=== PATIENT | female | born 1970 | race Caucasian/White ===

== ENCOUNTER 2017-08-23 01:50 | Emergency (ER) | payer BC ==
[~2017-08-23] VITALS: Ht 157.4 cm; Wt 72.6 kg
[2017-08-23] MEDS ORDERED: CORTISPORIN SUS10 ML OT (03:54)
== END 2017-08-23 05:09 | disposition home or self-care (01) ==
LOC: ED 01:50
DX: H61.21 Impacted cerumen, right ear (principal); F17.200 Nicotine dependence, unspecified, uncomplicated

== ENCOUNTER 2017-10-10 11:22 | Inpatient (IN) | payer BC ==
[~2017-10-10] VITALS: Ht 165.1 cm; Wt 72.6 kg
--- NOTE | ~2017-10-10 | ST ---
[place], [place] EXERCISE STRESS TEST REPORT NAME: RODOLFO PADILLA [facility] CLINICT #: [id number] UNIT #: [id number] ROOM: 404 DOCTOR: RALF HORTA MD BIRTHDATE: [birth year] DOS: 10/11/2017 REFERRING PHYSICIAN: Dr. Christian Romero. INDICATION: Chest pain. The patient underwent standard Guillaume protocol stress EKG. The patient's baseline EKG shows sinus bradycardia with heart rate 57 beats per minute, blood pressure 110/70. The patient exercised for 6 minutes and 15 seconds to a maximum heart rate of 156, which represents 91% of maximum predicted. The patient's peak heart rate was 196/100. The patient had no chest pain, no ischemic changes on the EKG and no arrhythmias noted. Hawkins treadmill score is 6.25. SUMMARY OF FINDINGS: 1. Negative exercise treadmill stress test. 2. The patient had no chest pain or arrhythmias. 3. Hawkins Treadmill score of 6.25 portending a low risk prognosis. 4. Please see separate report for perfusion scan results. RALF HORTA MD CM:STRESS:EXERCISE STRESS TEST REPORT [id number] RALF HORTA MD
[~2017-10-10 11:22] MED LIST: CORTISPORIN SUS10 ML OT
[2017-10-10 11:36] VITALS: BP 149/89
[2017-10-10 11:51] LABS: BASO # 0.1 10*3/uL (0.0-0.1); BASO % 0.7 % (0.0-1.0); EOS # 0.2 10*3/uL (0.0-0.4); EOS % 2.5 % (1.0-4.0); HEMOGLOBIN 12.2 g/dl (12.0-16.0); LYMPH % 35.9 % (27.0-41.0); MEAN CORPUSCULAR HGB 31.5 pg (27.0-31.0); MEAN CORPUSCULAR HGB CONC 33.9 g/dl (33.0-37.0); MONO # 0.6 10*3/uL (0.1-1.0); MONO % 6.7 % (3.0-9.0); NEUT # 4.5 10*3/uL (2.3-7.9); PLATELET COUNT AUTOMATED 314 10*3/uL (130-400); RED BLOOD COUNT 3.87 10*6/uL (4.10-5.10); RED CELL DISTRI WIDTH 13.6 % (0-14.5); WHITE BLOOD COUNT 8.3 10*3/uL (4.8-10.8)
[2017-10-10 12:00] LABS: ACT PARTIAL THROMBO TIME 26.5 SECONDS (20.8-31.5); INTERNATIONAL NORM RATIO 0.9 (2.0-3.5)
[2017-10-10 12:02] VITALS: BP 141/94
[2017-10-10 12:45] LABS: ALBUMIN 3.6 gm/dl (3.1-4.5); ALKALINE PHOSPHATASE 73 U/L (45-117); BUN 13 mg/dl (7-24); CHLORIDE 108 mmol/L (98-107); CREATININE 0.69 mg/dL (0.55-1.02); SGOT/AST 10 IU/L (3-35); SGPT/ALT 14 U/L (12-78); SODIUM 141 mmol/L (136-145); TOTAL PROTEIN 7.4 gm/dL (6.4-8.2)
[2017-10-10 12:46] LABS: TROPONIN I < 0.015 ng/ml (<0.045)
[2017-10-10 13:11] VITALS: BP 126/88
[2017-10-10 14:00] VITALS: BP 145/95; BP 145/98
[2017-10-10 16:00] VITALS: BP 113/68
[2017-10-10 20:00] VITALS: BP 113/79
[2017-10-11] VITALS: BP 110/71
[2017-10-11 06:31] LABS: ALBUMIN 3.2 gm/dl (3.1-4.5); ALKALINE PHOSPHATASE 65 U/L (45-117); BUN 13 mg/dl (7-24); CHLORIDE 110 mmol/L (98-107); CHOLESTEROL 198 mg/dL (<200); CREATININE 0.77 mg/dL (0.55-1.02); FREE T4 0.85 ng/dl (0.76-1.46); HDL CHOLESTEROL 59 mg/dl (40-60); LDL CHOLESTEROL 123 mg/dL (9-159); PHOSPHOROUS 2.9 mg/dL (2.5-4.9); POTASSIUM 4.1 mmol/L (3.5-5.1); SGOT/AST 10 IU/L (3-35); SGPT/ALT 15 U/L (12-78); SODIUM 145 mmol/L (136-145); TOTAL PROTEIN 6.8 gm/dL (6.4-8.2); TRIGLYCERIDES 82 mg/dl (<150); VLDL CHOLESTEROL 16 mg/dL (6-40)
[2017-10-11 06:43] LABS: BASO # 0.1 10*3/uL (0.0-0.1); BASO % 0.7 % (0.0-1.0); EOS # 0.2 10*3/uL (0.0-0.4); EOS % 2.4 % (1.0-4.0); HEMATOCRIT 34.5 % (37.0-47.0); HEMOGLOBIN 11.5 g/dl (12.0-16.0); LYMPH # 2.7 10*3/uL (1.3-4.4); LYMPH % 31.8 % (27.0-41.0); MEAN CELL VOLUME 93.8 fl (81.0-99.0); MEAN CORPUSCULAR HGB 31.3 pg (27.0-31.0); MEAN CORPUSCULAR HGB CONC 33.3 g/dl (33.0-37.0); MEAN PLATELET VOLUME 10.8 fl (9.6-12.3); MONO # 0.6 10*3/uL (0.1-1.0); MONO % 7.1 % (3.0-9.0); NEUT # 4.9 10*3/uL (2.3-7.9); NEUT % 57.8 % (47.0-73.0); PLATELET COUNT AUTOMATED 282 10*3/uL (130-400); RED BLOOD COUNT 3.68 10*6/uL (4.10-5.10); RED CELL DISTRI WIDTH 13.7 % (0-14.5); WHITE BLOOD COUNT 8.5 10*3/uL (4.8-10.8)
[2017-10-11 06:58] LABS: VITAMIN D, 25-HYDROXY 9.4 ng/mL (30-100)
[2017-10-11 08:00] VITALS: BP 110/72
[2017-10-11 13:30] VITALS: BP 141/97
[2017-10-11 16:00] VITALS: BP 113/85
[2017-10-11] MEDS ORDERED: VITAMIN D-32000 UNIT PO (16:46)
== END 2017-10-11 17:14 | disposition home or self-care (01) | DRG 313 ==
LOC: ED 11:22 → 4E 11:51 → EDHOLD 11:51 → 4E 12:43
PROVIDERS: Emergency Medicine; Internal Medicine
PROC: 4A02XM4 Measurement of Cardiac Total Activity, External Approach (ICD-10-PCS; principal; 2017-10-11)
DX: R07.9 Chest pain, unspecified (principal); E83.41 Hypermagnesemia; E87.8 Other disorders of electrolyte and fluid balance, not elsewhere classified; K21.9 Gastro-esophageal reflux disease without esophagitis; F17.200 Nicotine dependence, unspecified, uncomplicated; R03.0 Elevated blood-pressure reading, without diagnosis of hypertension; R06.00 Dyspnea, unspecified; R61 Generalized hyperhidrosis; Z83.3 Family history of diabetes mellitus; Z71.6 Tobacco abuse counseling

== ENCOUNTER 2018-11-19 17:27 | Emergency (ER) | payer BC ==
[~2018-11-19] VITALS: Ht 154.9 cm; Wt 77.1 kg
[~2018-11-19 17:27] MED LIST changes: +VITAMIN D-32000 UNIT PO
== END 2018-11-19 20:00 | disposition home or self-care (01) ==
LOC: ED 17:27
DX: M25.561 Pain in right knee (principal); F17.200 Nicotine dependence, unspecified, uncomplicated; X58.XXXA Exposure to other specified factors, initial encounter; Y93.89 Activity, other specified; Y92.89 Other specified places as the place of occurrence of the external cause; Y99.8 Other external cause status

== ENCOUNTER → 2020-01-30 | Outpatient (CLI) | payer BC ==
[2020-01-30 16:53] LABS: HEMATOCRIT 36.4 % (37.0-47.0); MEAN CELL VOLUME 93.8 fl (81.0-99.0); MEAN CORPUSCULAR HGB 31.2 pg (27.0-31.0); MEAN CORPUSCULAR HGB CONC 33.2 g/dl (33.0-37.0); MEAN PLATELET VOLUME 9.9 fl (9.6-12.3); RED BLOOD COUNT 3.88 10*6/uL (4.10-5.10); RED CELL DISTRI WIDTH 14.2 % (0-14.5); WHITE BLOOD COUNT 10.1 10*3/uL (4.8-10.8)
[2020-01-30 17:07] LABS: ALBUMIN 3.4 gm/dl (3.1-4.5); ALKALINE PHOSPHATASE 82 U/L (45-117); BUN 11 mg/dl (7-24); CHLORIDE 110 mmol/L (98-107); CREATININE 0.89 mg/dL (0.55-1.02); SGOT/AST 8 IU/L (3-35); SGPT/ALT 19 U/L (12-78); SODIUM 141 mmol/L (136-145); TOTAL PROTEIN 7.3 gm/dL (6.4-8.2)
[2020-01-31 08:07] LABS: RHEUMATOID ARTHRITIS FACTOR <10.0 IU/mL (0.0-13.9)
== END | disposition home or self-care (01) ==
LOC: LAB 16:15 → EDSTATUS 16:16
PROVIDERS: Family Medicine
DX: M25.50 Pain in unspecified joint (principal); M79.10 Myalgia, unspecified site

== ENCOUNTER → 2020-03-27 | Outpatient (CLI) | payer BC | END | disposition home or self-care (01) | LOC: RAD 16:03 | DX: R06.02 Shortness of breath (principal); R05 Cough; R06.2 Wheezing ==

== ENCOUNTER → 2020-03-28 | Outpatient (CLI) | payer BC | END | disposition home or self-care (01) | LOC: COVID19 00:58 | DX: R06.02 Shortness of breath (principal); R06.2 Wheezing; Z20.828 Contact with and (suspected) exposure to other viral communicable diseases ==

== ENCOUNTER → 2020-04-29 | Outpatient (CLI) | payer BC | END | disposition home or self-care (01) | LOC: MAMMO 03-11 16:30 | DX: Z12.31 Encounter for screening mammogram for malignant neoplasm of breast (principal) ==

== ENCOUNTER → 2021-06-08 | Outpatient (CLI) | payer OTHER | END | disposition home or self-care (01) | LOC: COVID19 15:05 | PROVIDERS: ATTEND Internal Medicine | DX: Z11.52 Encounter for screening for COVID-19 (principal) ==

== ENCOUNTER 2024-01-05 21:21 | Emergency (ER) | payer OTHER ==
[~2024-01-05] VITALS: Ht 157.4 cm; Wt 72.6 kg
[2024-01-05] MEDS ORDERED: IOHEXOL 300 MG/ML 100 ML VIAL IV ONE (21:40)
[2024-01-05 22:03] LABS: BASO # 0.1 10*3/uL (0.0-0.1); BASO % 0.6 % (0.0-1.0); EOS # 0.2 10*3/uL (0.0-0.4); EOS % 1.7 % (1.0-4.0); HEMATOCRIT 32.4 % (37.0-47.0); LYMPH # 2.9 10*3/uL (1.3-4.4); LYMPH % 28.9 % (27.0-41.0); MEAN CELL VOLUME 90.3 fl (81.0-99.0); MEAN CORPUSCULAR HGB 28.1 pg (27.0-31.0); MEAN CORPUSCULAR HGB CONC 31.2 g/dl (33.0-37.0); MEAN PLATELET VOLUME 9.8 fl (9.6-12.3); MONO # 0.7 10*3/uL (0.1-1.0); MONO % 6.7 % (3.0-9.0); NEUT # 6.1 10*3/uL (2.3-7.9); NEUT % 61.8 % (47.0-73.0); PLATELET COUNT AUTOMATED 350 10*3/uL (130-400); RED BLOOD COUNT 3.59 10*6/uL (4.10-5.10); RED CELL DISTRI WIDTH 16.8 % (0-14.5); WHITE BLOOD COUNT 9.9 10*3/uL (4.8-10.8)
[2024-01-05 22:09] LABS: ALKALINE PHOSPHATASE 74 U/L (46-116); BUN 12 mg/dl (9-23); CHLORIDE 109 mmol/L (98-107); LIPASE 40 U/L (12-53); POTASSIUM 3.6 mmol/L (3.4-5.1); SGPT/ALT 8 U/L (5-49); TOTAL PROTEIN 7.1 gm/dL (6.0-8.0)
[2024-01-05 22:10] LABS: BILIRUBIN Negative (Negative); BLOOD 1+ (Negative); CLARITY Cloudy (Clear); COLOR Yellow (Yellow); GLUCOSE Negative (Negative); KETONE Negative (Negative); LEUKO ESTERASE 1+ (Negative); NITRITE Negative (Negative); PH 6.5 (4.5-8.0); UROBILINOGEN 0.2 E.U./dl (0.0-1.0)
[2024-01-05 22:23] LABS: BACTERIA 4+; EPITHELIAL CELLS 21-30
[2024-01-05] MEDS ORDERED: Ceftriaxone Sodium 1 GM/10 ML SYR IV ONE (22:45)
[2024-01-06] MEDS ORDERED: NAPROXEN250 MG PO (00:07)
[2024-01-06] MEDS ORDERED: METHOCARBAMOL500 M1 PO (00:07)
== END 2024-01-06 00:14 | disposition home or self-care (01) ==
LOC: ED 21:21
PROVIDERS: Nurse Practitioner
DX: S39.011A Strain of muscle, fascia and tendon of abdomen, initial encounter (principal); X50.0XXA Overexertion from strenuous movement or load, initial encounter; Y93.89 Activity, other specified; Y92.89 Other specified places as the place of occurrence of the external cause; Y99.0 Civilian activity done for income or pay; Z98.890 Other specified postprocedural states; F17.200 Nicotine dependence, unspecified, uncomplicated

== ENCOUNTER 2024-05-17 08:56 | Emergency (ER) | payer SELFPAY ==
[~2024-05-17 08:56] MED LIST changes: +METHOCARBAMOL500 M1 PO; +NAPROXEN250 MG PO
== END 2024-05-17 10:27 | disposition left against medical advice (07) ==
LOC: ED 08:56
DX: R50.9 Fever, unspecified (principal); R09.89 Other specified symptoms and signs involving the circulatory and respiratory systems; R05.9 Cough, unspecified; Z53.21 Procedure and treatment not carried out due to patient leaving prior to being seen by health care provider